=== PATIENT | male | born 2000 | race Caucasian/White ===

== ENCOUNTER 2021-02-10 03:05 | Emergency (ER) | payer BC ==
[2021-02-10 03:39] VITALS: BMI 22.9
[2021-02-10 07:49] VITALS: BP 126/76; PULSE 61; TEMP 98.1
[2021-02-10] MEDS ORDERED: IBUPROFEN 400 MG TABLET (FP) PO ONE ×2 (07:52→08:00)
[2021-02-10 08:38] LABS: BASO % 0.5 % (0-2.0); EOS % 1.3 % (0-4.5); HEMATOCRIT 42.9 % (35.4-49); HEMOGLOBIN 14.3 GM/dL (11.7-16.9); LYMPH % 23.9 % (8-40); MCH 29.4 pg (25.7-33.7); MCHC 33.4 g/dl (32.0-35.9); MEAN CELL VOLUME 88.1 fl (80-96); MEAN PLT VOLUME 7.9 fl (7.5-11.1); NEUT % 66.3 % (42.8-82.8); PLATELET COUNT 268 10^3/uL (134-434); RBC 4.87 M/mm3 (4.00-5.60); RDW 12.4 % (11.9-15.9); WHITE BLOOD COUNT 8.3 K/mm3 (4.0-10.0)
[2021-02-10 09:01] LABS: CHLORIDE 104 mmol/L (98-107); SODIUM 139 mmol/L (136-145)
[2021-02-10 09:03] LABS: CALCIUM 9.4 mg/dL (8.5-10.1)
[2021-02-10 09:04] LABS: ALBUMIN 4.1 g/dl (3.4-5.0); ANION GAP 7 MMOL/L (8-16); BLOOD UREA NITROGEN 12.8 mg/dL (7-18); CO2 29 mmol/L (21-32); GLUCOSE,RANDOM 94 mg/dL (74-106)
[2021-02-10 09:06] LABS: CREATININE 1.1 mg/dL (0.55-1.3); SGOT/AST 20 U/L (15-37); SGPT/ALT 23 U/L (13-61)
[2021-02-10 09:07] LABS: BILIRUBIN,TOTAL 0.9 mg/dL (0.2-1)
[2021-02-10 09:09] LABS: ALK PHOS 71 U/L (45-117); TOT PROT 7.4 g/dl (6.4-8.2)
== END 2021-02-10 10:03 | disposition home or self-care (01) ==
LOC: JER 03:05
DX: R07.9 Chest pain, unspecified (principal); I49.9 Cardiac arrhythmia, unspecified
CPT/HCPCS: 36415; 80053; 84443; 84484; 85025; 93005; 93010; 99284-25